=== PATIENT | female | born 1960 | race Hispanic/Latino ===

== ENCOUNTER → 2017-09-18 | Outpatient (CLI) | payer OTHER | END | disposition home or self-care (01) | LOC: OIH 12:39 | PROVIDERS: ATTEND Internal Medicine Nephrology | DX: Z13.6 Encounter for screening for cardiovascular disorders (principal) | CPT/HCPCS: 75571 ==

== ENCOUNTER → 2020-12-15 | Outpatient (CLI) | payer OTHER | END | disposition home or self-care (01) | LOC: OIH 13:05 | PROVIDERS: ATTEND Internal Medicine Nephrology | DX: Z13.6 Encounter for screening for cardiovascular disorders (principal) | CPT/HCPCS: 75571 ==

== ENCOUNTER → 2022-08-22 | Outpatient (CLI) | payer BC ==
[~2022-08-22] MED LIST: AEC81 PO; B CO PO; CHOL2000 PO; IOHEXOL-350 75 ML VIAL IV ONE; ROSU10TA28 PO
== END | disposition home or self-care (01) ==
LOC: RAH 08:18
PROVIDERS: ATTEND Surgery
DX: K57.90 Diverticulosis of intestine, part unspecified, without perforation or abscess without bleeding (principal); R10.9 Unspecified abdominal pain; K59.00 Constipation, unspecified
CPT/HCPCS: 74178; Q9967

== ENCOUNTER 2023-03-23 12:29 | Emergency (ER) | payer BC ==
[~2023-03-23] VITALS: Ht 165.1 cm; Wt 74.8 kg
[~2023-03-23 12:29] MED LIST changes: -IOHEXOL-350 75 ML VIAL IV ONE
[2023-03-23 13:08] VITALS: BP 149/70; PULSE 79; RESP 16; O2SAT 98
[2023-03-23 13:43] LABS: APPEARANCE,URINE CLEAR (CLEAR); BILIRUBIN,URINE NEGATIVE (NEGATIVE); COLOR,URINE LIGHT-YELLOW (YELLOW); GLUCOSE, URINE (UA) NEGATIVE (NEGATIVE); KETONES,URINE NEGATIVE (NEGATIVE); LEUKOCYTE ESTERASE ,URINE 250 Leu/uL (NEGATIVE); NITRATE,URINE NEGATIVE (NEGATIVE); OCCULT BLOOD,URINE NEGATIVE (NEGATIVE); PH,URINE 6.5 (5.0-8.0); PROTEIN,URINE NEGATIVE (NEGATIVE); UROBILINOGEN,URINE 0.2 mg/dL (0.2-1.0)
[2023-03-23 13:48] LABS: BASOPHILS # (AUTO) 0.02 K/uL (0.00-0.20); BASOPHILS % (AUTO) 0.3 % (0.0-5.0); EOSINOPHILS # (AUTO) 0.05 K/uL (0.00-0.70); EOSINOPHILS % (AUTO) 0.7 % (0.0-8.0); HEMATOCRIT 39.5 % (36-48); IMMATURE GRANULOCYTE ABSOLUTE 0.01 K/uL (0-1); LYMPHOCYTES # (AUTO) 0.8 K/uL (1.0-4.8); LYMPHOCYTES % (AUTO) 11.5 % (21.0-51.0); MEAN CORPUSCULAR HEMOGLOBIN 31.3 pg (27.0-33.0); MEAN CORPUSCULAR HGB CONC 33.4 g/dL (32.0-36.0); MEAN CORPUSCULAR VOLUME 93.6 fL (79-99); MONOCYTES # (AUTO) 0.4 K/uL (0.1-1.0); MONOCYTES % (AUTO) 5.5 % (3.0-13.0); NEUTROPHILS # (AUTO) 5.7 K/uL (1.8-7.7); NEUTROPHILS % (AUTO) 81.9 % (40.0-77.0); PLATELET COUNT (AUTO) 155 K/uL (130-400); RED BLOOD CELL COUNT(AUTO) 4.22 MIL/uL (4.00-5.50); RED CELL DISTRIBUTION WIDTH 12.2 % (11.0-15.5)
[2023-03-23 13:57] LABS: ADD UA MICROSCOPIC YES
[2023-03-23 14:00] LABS: CREATININE 0.8 mg/dL (0.5-1.5); POTASSIUM 3.7 mmol/L (3.5-5.1)
[2023-03-23 14:05] LABS: BILIRUBIN,TOTAL 0.6 mg/dL (0.2-1.0); TOTAL PROTEIN, SERUM 7.4 g/dL (6.0-8.3)
[2023-03-23 14:09] LABS: BACTERIA,URINE RARE /HPF (None Seen); MUCUS,URINE RARE LPF (None Seen); RBC,URINE 0-1 /HPF (0-1); SQUAMOUS EPITHELIAL CELL,UR RARE /HPF (0-2)
[2023-03-23] MEDS ORDERED: 0.9%NACL 1000ML 1,000 ML IV ONE (14:30)
[2023-03-23] MEDS ORDERED: IOHEXOL-350 75 ML VIAL IV ONE (14:33)
[2023-03-23] MEDS: KETOROLAC 15MG/ML VIAL (15MG/ML) IV ONE ×2 (15:11→15:44)
[2023-03-23] MEDS: ZOSYN 3.375GM +NS 50ML IV ONE ×2 (15:11→15:43)
[2023-03-23] MEDS: PANTOPRAZOLE 40 MG/VIAL IVP ONE ×2 (15:11→15:44)
[2023-03-23] MEDS: ONDANSETRON 4MG INJ IVP ONE ×2 (15:12→15:44)
[2023-03-23] MEDS: ACETAMINOPHEN 325 MG TAB PO ONE ×2 (15:12→15:45)
[2023-03-23] MEDS ORDERED: ACET-66 PO (15:37)
[2023-03-23] MEDS ORDERED: ONDA22I IM (15:37)
[2023-03-23] MEDS ORDERED: CEPH500C2 PO (15:37)
== END 2023-03-23 16:01 | disposition home or self-care (01) ==
LOC: EDH 12:29
DX: S30.1XXA Contusion of abdominal wall, initial encounter (principal); N39.0 Urinary tract infection, site not specified; E78.00 Pure hypercholesterolemia, unspecified; Z79.82 Long term (current) use of aspirin; Z79.899 Other long term (current) drug therapy; Z98.890 Other specified postprocedural states
CPT/HCPCS: 99284; 74177; 96360; 96361; 80053; 83690; 85025; 87088; 81001; 36415; J7030; J2543; Q9967; C9113; J1885; J2405

== ENCOUNTER → 2023-08-26 | Outpatient (CLI) | payer BC ==
[~2023-08-26] MED LIST changes: +ACET-66 PO; +CEPH500C2 PO; +ONDA22I IM
[2023-08-26 13:19] LABS: CREATININE 0.7 mg/dL (0.5-1.0)
== END | disposition home or self-care (01) ==
LOC: LAB 11:37
PROVIDERS: ATTEND Surgery
DX: R10.9 Unspecified abdominal pain (principal)
CPT/HCPCS: 36415; 82565; 84520

== ENCOUNTER → 2023-08-29 | Outpatient (CLI) | payer BC ==
[~2023-08-29] MED LIST changes: +IOHEXOL-350 75 ML VIAL IV ONE
== END | disposition home or self-care (01) ==
LOC: RAH 09:32
PROVIDERS: ATTEND Surgery
DX: R10.9 Unspecified abdominal pain (principal); M47.815 Spondylosis without myelopathy or radiculopathy, thoracolumbar region
CPT/HCPCS: 74177; Q9967

== ENCOUNTER 2025-01-21 11:02 | Emergency (ER) | payer BC ==
[~2025-01-21] VITALS: Ht 165.1 cm; Wt 77.1 kg
[~2025-01-21 11:02] MED LIST changes: -IOHEXOL-350 75 ML VIAL IV ONE; -ROSU10TA28 PO; +ROSU10TA72 PO
[2025-01-21 11:29] LABS: IMMATURE GRANULOCYTE ABSOLUTE 0.02 K/uL (0-1); NUCLEATED RED BLOOD CELLS 0.0 % (0.0-0.19); PLATELET COUNT (AUTO) 146 K/uL (130-400); RED BLOOD CELL COUNT(AUTO) 4.21 MIL/uL (4.00-5.50); RED CELL DISTRIBUTION WIDTH 12.6 % (11.0-15.5); WHITE BLOOD COUNT (AUTO) 5.6 K/uL (4.8-10.8)
[2025-01-21 11:36] LABS: CREATININE 0.8 mg/dL (0.5-1.0); GLOMERULAR FILTR. RATE CALC 83.0 mL/min (>90); GLUCOSE,RANDOM 141.0 mg/dL (70-105); SODIUM SERUM 139.0 mmol/L (136-145); UREA NITROGEN, BLOOD 8.0 mg/dL (7-18)
[2025-01-21 12:03] LABS: APPEARANCE,URINE CLEAR (CLEAR); GLUCOSE, URINE (UA) NEGATIVE (NEGATIVE); LEUKOCYTE ESTERASE ,URINE NEGATIVE Leu/uL (NEGATIVE); NITRATE,URINE NEGATIVE (NEGATIVE); OCCULT BLOOD,URINE NEGATIVE (NEGATIVE)
[2025-01-21 12:08] LABS: ADD UA MICROSCOPIC NO
[2025-01-21] MEDS ORDERED: IOHEXOL-350 75 ML VIAL IV ONE (12:22)
[2025-01-21] MEDS: 0.9%NACL 1000ML 1,000 ML IV ONE (13:03)
--- NOTE | 2025-01-21 13:27 | HMCIMG ---
EXAM: CT Abdomen and Pelvis with IV contrast CLINICAL HISTORY: llq abd pain hx of diverticulitis TECHNIQUE: Axial computed tomography images of the abdomen and pelvis with intravenous contrast. CONTRAST: with intravenous contrast. COMPARISON: Compared with the previous CT dated 08/29/23 FINDINGS: LUNG BASES: Stable mild bibasal dependent atelectatic changes. No pleural effusions are seen. LIVER: Unremarkable. GALLBLADDER AND BILE DUCTS: The gallbladder is partially distended. No radioopaque gallstones are seen. No biliary ductal dilatation is evident. PANCREAS: Unremarkable. SPLEEN: Unremarkable. ADRENAL GLANDS: Unremarkable. KIDNEYS, URETERS, AND BLADDER: The kidneys appear within normal limits. There is no hydronephrosis or hydroureter. No urinary calculi are seen. STOMACH AND BOWEL: Subtotal distal rectosigmoid resection. Stable colonic diverticulosis with no features of acute diverticulitis. Unremarkable appearance of the stomach and small bowel. No evidence of bowel obstruction. No evidence suggesting enteritis or colitis. APPENDIX: No evidence of acute appendicitis on CT examination. PERITONEUM: No free fluid. No free air. LYMPH NODES: No lymphadenopathy is evident. REPRODUCTIVE: Unremarkable as visualized. VASCULATURE: No evidence of abdominal aortic aneurysm. BONES: No aggressive appearing osseous lesion. No acute osseous pathology evident. Multilevel degenerative changes in the visualized spine. IMPRESSION: 1. No acute intraabdominal or pelvic findings. 2. Stable colonic diverticulosis without features of acute diverticulitis. /Boyd
--- NOTE | 2025-01-21 14:13 | ERN ---
General Chief Complaint: Abdominal Pain Stated Complaint: ABDOMINAL PAIN Time Seen by MD: 11:03 Time Seen by Midlevel: 11:03 Source: patient History of Present Illness Initial Comments Patient is a 64-year-old female with a past medical history of diverticulitis presenting to the emergency department for evaluation of intermittent diffuse pain. He reports night sweats in his concerned she may have another flare of diverticulitis. Allergies: Coded Allergies: No Known Allergies (Unverified Allergy, Unknown, 12/26/20) Home Meds Active Scripts Ondansetron HCl (Zofran) 4 Mg/2 Ml Inj, 4 MG IM TID for 3 Days, #9 ML Prov:REX LENNON 03/23/23 Acetaminophen (Acetaminophen) 500 Mg Tablet, 500 MG PO Q4PRN for 5 Days, #15 TAB Prov:REX LENNON 03/23/23 Cephalexin (Cephalexin) 500 Mg Capsule, 500 MG PO TID for 10 Days, #30 CAP Prov:REX LENNON 03/23/23 Reported Medications B Complx/C/Folic/Zinc/Cup Danielson/E (Osrhyqayoeve-Rvzw-Mwgntx Tab) 1 Each Tablet, 1 EACH PO HS, TAB 12/26/20 Cholecalciferol (Vitamin D3) (Vitamin D3) 50 Mcg Capsule, 50 MCG PO HS, CAP 12/26/20 Aspirin (ASPIRIN 81 MG ECTAB) 81 Mg Ectab, 81 MG PO HS, TAB.EC 12/26/20 Rosuvastatin Calcium (Rosuvastatin Calcium) 10 Mg Tablet, 10 MG PO HS, TAB 12/26/20 Past Medical History Past Medical History: Diverticulitis, High Cholesterol Medical History Other: CHOLESTERAL Past Surgical History: None, BTL Surgical History Other: BLADDER LIFT, RESECTION R/T DIVERTICULITIS Social History Social History: Lives with family ROS Dictation CONSTITUTIONAL: Negative except for HPI HEAD/FACE: Negative except for HPI EENT: Negative except for HPI RESPIRATORY: Negative except for HPI GASTROINTESTINAL/ABDOMINAL: Negative except for HPI GENITOURINARY: Negative except for HPI MUSCULOSKELETAL: Negative except for HPI INTEGUMENTARY: Negative except for HPI NEUROLOGICAL/PSYCH: Negative except for HPI HEMATOLOGIC/LYMPHATIC: Negative except for HPI All Systems Negative, Except as noted above. 13 point review of systems assessed and all negative except for above. Physical Exam Physical Exam Dictation Vital Signs reviewed General Appearance: Alert, oriented x 3, no acute distress, well developed, nourished. Head and Face: non-traumatic. Eyes: PERRL, pink conjunctivas, eyelid no trauma, anterior chamber with arcus senilis. Ears: Pinnas intact and no signs of trauma or erythema ear canals clear and no discharge TM no erythema Nose: No discharge, no bleeding. Oropharynx: Mouth normal, tongue pink, pharynx clear,no erythema, tonsils no exudates, no abscesses noted, mucous membrane moist Neck: Supple, non-tender, no thyromegaly, no masses, no JVD, no bruits Breast:Deferred Chest:No tenderness, no crepitus, no paradoxical movement, no retractions Lungs:Clear, well-ventilated, symmetric, no rales, no wheezing, no rhonchi, no stridor, good breath sounds bilaterally Heart: Regular rate, regular rhythm, no murmur, no gallops Vascular: no peripheral edema, Abdomen: Soft, positive bowel sounds, nondistended, no guarding, nontender, no rebound, no masses no hepatomegaly, no splenomegaly, no Prieto's sign, no hernias. Rectal: Deferred Genital: Deferred Neurological: Normal speech, motor function intact, sensory function intact Musculoskeletal: Neck nontender, full range of motion, back nontender, full range of motion, Extremities: nontender, full range of motion Skin: Color pink, dry, no turgor, no rash, no lacerations, no abrasions, no contusions. Lymphatic: Deferred Results Laboratory and Microbiology Lab and Micro Result Laboratory Tests Test 01/21/25 11:22 01/21/25 11:40 White Blood Count 5.6 K/uL (4.8-10.8) Red Blood Count 4.21 MIL/uL (4.00-5.50) Hemoglobin 13.0 g/dL (12.0-16.0) Hematocrit 38.2 % (36-48) Mean Corpuscular Volume 90.7 fL (79-99) Mean Corpuscular Hemoglobin 30.9 pg (27.0-33.0) Mean Corpuscular Hemoglobin Concent 34.0 g/dL (32.0-36.0) Red Cell Distribution Width 12.6 % (11.0-15.5) Platelet Count 146 K/uL (130-400) Mean Platelet Volume 11.2 fL (7.5-10.5) H Immature Granulocyte % (Auto) 0.4 % (0-1) Neutrophils (%) (Auto) 63.9 % (40.0-77.0) Lymphocytes (%) (Auto) 27.3 % (21.0-51.0) Monocytes (%) (Auto) 6.3 % (3.0-13.0) Eosinophils (%) (Auto) 1.6 % (0.0-8.0) Basophils (%) (Auto) 0.5 % (0.0-5.0) Neutrophils # (Auto) 3.6 K/uL (1.8-7.7) Lymphocytes # (Auto) 1.5 K/uL (1.0-4.8) Monocytes # (Auto) 0.4 K/uL (0.1-1.0) Eosinophils # (Auto) 0.09 K/uL (0.00-0.70) Basophils # (Auto) 0.03 K/uL (0.00-0.20) Absolute Immature Granulocyte (auto 0.02 K/uL (0-1) Nucleated Red Blood Cells 0.0 % (0.0-0.19) Sodium Level 139 mmol/L (136-145) Potassium Level 3.7 mmol/L (3.5-5.1) Chloride Level 104 mmol/L (101-111) Carbon Dioxide Level 29 mmol/L (21-32) Blood Urea Nitrogen 8 mg/dL (7-18) Creatinine 0.8 mg/dL (0.5-1.0) Glomerular Filtration Rate Calc 83 mL/min (>90) Random Glucose 141 mg/dL (70-105) H Lactic Acid Level 2.6 mmol/L (0.8-2.5) H Total Calcium 9.1 mg/dL (8.5-10.1) Urine Color COLORLESS (YELLOW) Urine Appearance CLEAR (CLEAR) Urine pH 6.5 (5.0-8.0) Urine Specific [place] 1.002 (1.001-1.031) Urine Protein NEGATIVE mg/dL (NEGATIVE) Urine Glucose (UA) NEGATIVE mg/dL (NEGATIVE) Urine Ketones NEGATIVE mg/dL (NEGATIVE) Urine Occult Blood NEGATIVE (NEGATIVE) Urine Nitrate NEGATIVE (NEGATIVE) Urine Bilirubin NEGATIVE mg/dL (NEGATIVE) Urine Urobilinogen 0.2 mg/dL (0.2-1.0) Urine Leukocyte Esterase NEGATIVE Gladys/uL Labs Reviewed?: Yes MDM MDM: Patient is a 64-year-old female with a past medical history of diverticulitis presenting to the emergency department for evaluation of intermittent diffuse pain. He reports night sweats in his concerned she may have another flare of diverticulitis. On physical examination patient has a mild tenderness diffuse into her abdomen. Vital signs are stable. Patient is afebrile and nontoxic appearing. CBC shows no leukocytosis. Chemistries are stable. CT scan of the abdomen/pelvis reveals diverticulosis with no evidence of diverticulitis. We will discharge patient Differential diagnosis: Diverticulitis, appendicitis, constipation There are no social concerns with this patient. Prescription drug management Prescriptions will include: None Medical management and examination interpretation discussions were had by me with other qualified healthcare professionals as indicated for the patient's care. ED Course Orders Procedure Category Date Status Time Cbc With Differential LAB 01/21/25 Complete 11:17 Basic Metabolic Panel LAB 01/21/25 Complete 11:17 Urinalysis Profile LAB 01/21/25 Complete 11:17 Lactic Acid LAB 01/21/25 Complete 11:17 Ct Abdomen/Pelvis CT 01/21/25 Resulted W/Contrast 11:17 0.9%Nacl 1000ml (Ns PHA 01/21/25 Complete 1000ml) 12:30 Current Medications Medications (Trade) Dose Ordered Sig/Brandie Route PRN Reason Start Time Stop Time Status Last Admin Dose Admin Sodium Chloride 1,000 ml @ 0 mls/hr ONCE ONCE IV 01/21/25 12:30 01/21/25 12:31 DC 01/21/25 13:03 Vital Signs Date Time Temp Pulse Resp B/P (MAP) Pulse Ox O2 Delivery O2 Flow Rate FiO2 01/21/25 13:17 97.9 85 13 124/56 98 Room Air* 0 21 01/21/25 11:30 98.4 97 15 150/88 95 Room Air* 0 21 01/21/25 11:03 98.4 105 16 135/82 97 Room Air DX & DISP Disposition: Discharge Departure Impression: Primary Impression: Unspecified abdominal pain Condition: Stable Additional Instructions: Your blood work today is stable. Your white blood cell count is normal. Your kidney function is normal. You are not anemic. Your urinalysis does not show any evidence infection. Your CT scan shows no evidence of diverticulitis or any other abnormality. At this time you do not have any findings consistent with diverticulitis or any other intra-abdominal Infection. Follow up with your primary care provider in 2-3 days for repeat evaluation. Referrals: REX RUANO MD (PCP) Time of Disposition: 14:11 I have reviewed the case, and I agree with, Diagnosis and Plan I performed the substantive portion of the visit. I have reviewed and personally made and approve the management plan that is documented in the note by myself or the DARIN. I acknowledge for responsibility for the patient's management plan. JIMENA DEL CID Jan 21, 2025 14:13
[2025-01-21 15:01] VITALS: BP 131/73; PULSE 76; RESP 16; TEMP 98; O2SAT 98
--- NOTE | 2025-01-21 15:01 | NUR ---
DC PATIENT WAS DC'D BY DR TSE, I DC'D PATIENTS IV WITH CATH STILL INTACT AND APPLIED 2X2 GAUZE WITH COBAN, I EXPLAINED TO PATIENT TO FOLLOW UP WITH PCP AND PROVIDED INFO BASED ON DIAGNOSIS, I ALSO ANSWERED ANY FOLLOW UP QUESTIONS, PATIENT AMBULATED OUT OF ED, NO COMPLICATIONS
== END 2025-01-21 15:11 | disposition home or self-care (01) ==
LOC: EDH 11:02
DX: K57.30 Diverticulosis of large intestine without perforation or abscess without bleeding (principal); E78.00 Pure hypercholesterolemia, unspecified; Z79.82 Long term (current) use of aspirin; Z98.51 Tubal ligation status
CPT/HCPCS: 99284; 74177; 96360; 80048; 85025; 83605; 81003; 36415; J7030; Q9967